=== PATIENT | male | born 1980 | race Caucasian/White ===

== ENCOUNTER 2018-08-21 08:25 | Outpatient (CLI) | payer BC ==
--- NOTE | 2018-08-21 08:50 | RAD ---
EXAM: Two views chest PROVIDED CLINICAL HISTORY: Pneumonia of both lungs due to infectious organism. Follow-up evaluation. COMPARISON: 07/28/2018. FINDINGS: Cardiac silhouette and pulmonary vasculature are within normal limits. The faint nodular alveolar op acities present on prior exam are less perceptible on today's exam. No obvious parenchymal opacity is seen, and there is no pleural effusion. The osseous structures have a normal appearance. IMPRESSION: The scattered nodular parenchymal densities on the prior exam are much less perceptible on today's ex am. No obvious parenchymal opacity is seen on the current study. Follow-up examination as indicated is recommended..
== END 2018-08-21 08:26 | disposition home or self-care (01) ==
LOC: BICRAD 08:25
PROVIDERS: ATTEND Physician Assistant
DX: J18.9 Pneumonia, unspecified organism (principal); R91.8 Other nonspecific abnormal finding of lung field
CPT/HCPCS: 71046

== ENCOUNTER 2022-03-01 17:52 | Emergency (ER) | payer BC ==
[2022-03-01] MEDS ORDERED: predniSONE 20 MG TAB ONE (20:17)
[2022-03-01] MEDS ORDERED: Ketorolac Tromethamine 30 MG/ML VIAL ONE (20:17)
== END 2022-03-01 20:20 | disposition home or self-care (01) ==
LOC: ERS 17:52
DX: M10.9 Gout, unspecified (principal)
CPT/HCPCS: 96372; 99283; J1885; J7512

== ENCOUNTER 2022-05-24 15:30 | Outpatient (CLI) | payer BC | END 2022-05-24 15:31 | disposition home or self-care (01) | LOC: BICULT 15:30 | PROVIDERS: ATTEND Internal Medicine Nephrology | DX: N18.30 Chronic kidney disease, stage 3 unspecified (principal); Z94.0 Kidney transplant status | CPT/HCPCS: 76775 ==

== ENCOUNTER 2023-01-25 12:04 | Day surgery (SDC) | payer BC ==
[2023-01-25] MEDS ORDERED: Acetaminophen 500 MG TAB PO PRN (12:54)
[2023-01-25] MEDS ORDERED: diphenhydrAMINE 25 MG CAP PO PRN (12:54)
[2023-01-25] MEDS ORDERED: diphenhydrAMINE 25 MG CAP ONE (13:32)
[2023-01-25] MEDS ORDERED: Acetaminophen 500 MG TAB ONE (13:32)
[2023-01-25 18:06] VITALS: BP 187/103; TEMP 97.8
== END 2023-01-25 18:00 | disposition home or self-care (01) ==
LOC: ONC/OP 12:04
PROVIDERS: ATTEND Internal Medicine Hematology & Oncology
DX: D64.9 Anemia, unspecified (principal); D69.6 Thrombocytopenia, unspecified
CPT/HCPCS: 36430; 86850; 86900; 86901; P9016